=== PATIENT | female | born 1985 | race Caucasian/White ===

== ENCOUNTER 2017-01-05 15:58 | Emergency (ER) | payer OTHER ==
[2017-01-05 16:08] VITALS: BP 100/67
--- NOTE | 2017-01-05 16:12 | ED Physician Documentation ---
Upper Respiratory Symptoms - HISTORIAN Historian: patient - HPI Stated Complaint: CC Chief Complaint: Upper Respiratory Symptoms Onset: days ago (10 days) Duration: constant Context: denies: recent foreign travel Severity: mild Associated Symptoms: earache, runny nose, sinus pain (mild), sore throat. denies: fever, chills, sweating, hay fever, shortness of breath Further Comments: no - ROS CONST/EYES: denies: weakness - PAST HX Lung Disease: denies: asthma PE Risk Factors: none Surgeries/Procedures: other (lazix) Allergies/Adverse Reactions: Allergies Allergy/AdvReac Type Severity Reaction Status Date / Time No Known Allergies Allergy Verified 01/05/17 16:08 Home Medications: Ambulatory Orders Medication Instructions Recorded Amoxicillin [Amoxil] 500 mg PO TID #30 capsule 01/05/17 - SOCIAL HX Smoking History: non-smoker Alcohol Use: rarely Drug Use: none - FAMILY HX Family History: no significant history - VITAL SIGNS Vital Signs: Vital Signs Temp Pulse Resp BP Pulse Ox 98.1 F 74 20 100/67 100 01/05/17 16:06 01/05/17 16:06 01/05/17 16:06 01/05/17 16:06 01/05/17 16:06 - REVIEWED ASSESSMENTS Nursing Assessment Reviewed: Yes Vitals Reviewed: Yes Upper Respiratory Symptoms - EXAM General Appearance: alert EENT: eyes nml inspection, rhinorrhea, purulent nasal drainage, pharyngeal erythema (mild), other (TM clear, nare white/yellow discharge, no blood, mild sinus tenderness) Neck: normal inspection, thyroid normal, supple Respiratory: no resp. distress, breath sounds nml, speaks full sentences. No: respiratory distress, respiratory failure CVS: reg rate & rhythm, heart sounds normal, equal pulses Skin: color nml, no rash Neuro/Psych: mood/affect nml Discharge Clincal Impression: Upper respiratory infection Additional Instructions: Take Amoxil as directed, three time a day. Drink a lot of fluids. Take some Mucinex 600mg twice a day to help with congestion. Try some saline nasal spray to help loosen congestion. If not improving to follow-up with your primary care provider or return to the ED. Home Medications: Ambulatory Orders Amoxicillin [Amoxil] 500 mg PO TID #30 capsule 01/05/17 Condition: Fair Disposition: 01 HOME, SELF-CARE Decision to Admit: NO Date of Decison to Admit: 01/05/17 Decision Time: 16:17
== END 2017-01-05 16:49 | disposition home or self-care (01) ==
LOC: ED 15:58
DX: J06.9 Acute upper respiratory infection, unspecified (principal)
CPT/HCPCS: 99283

== ENCOUNTER 2017-01-11 16:32 | Emergency (ER) | payer OTHER ==
[2017-01-11 16:50] VITALS: BP 109/70
--- NOTE | 2017-01-11 17:19 | ED Physician Documentation ---
General Adult - HISTORIAN Historian: patient - HPI Stated Complaint: cold symptoms Chief Complaint: General Adult Additional Information: resp infection cough sob past 10 days on amox w/o help Onset: days ago (10) Timing: still present (no help w/amox) Severity: moderate - ROS CONST: weakness, chills, other (cough fever) EYES/ENT: denies: problems with vision CVS/RESP: shortness of breath, cough GI/: none MS/SKIN/LYMPH: none NEURO/PSYCH: denies: headache, difficulty with speech - PAST HX Past History: none Surgeries/Procedures: other (lasik) Immunizations: influenza, pneumovax Allergies/Adverse Reactions: Allergies Allergy/AdvReac Type Severity Reaction Status Date / Time No Known Allergies Allergy Verified 01/11/17 16:43 Home Medications: Ambulatory Orders Medication Instructions Recorded Amoxicillin [Amoxil] 500 mg PO TID #30 capsule 01/05/17 - SOCIAL HX Smoking History: non-smoker Alcohol Use: rarely Drug Use: none - FAMILY HX Family History: No - VITAL SIGNS Vital Signs: Vital Signs Temp Pulse Resp BP Pulse Ox 99.1 F 70 18 109/70 99 01/11/17 16:44 01/11/17 16:44 01/11/17 16:44 01/11/17 16:44 01/11/17 16:44 - REVIEWED ASSESSMENTS Nursing Assessment Reviewed: Yes Vitals Reviewed: Yes General Adult Physical Exam - PHYSICAL EXAM GENERAL APPEARANCE: moderate distress EENT: eye inspection normal NECK: lymphadenopathy RESPIRATORY: no resp distress, wheezes CVS: reg rate & rhythm, heart sounds normal ABDOMEN: soft, non-tender BACK: normal inspection SKIN: warm/dry, normal color. No: cyanosis, diaphoresis, jaundice, mottled EXTREMITIES: non-tender, normal range of motion NEURO: oriented X3 Discharge Clincal Impression: Viral respiratory infection Home Medications: Ambulatory Orders Amoxicillin [Amoxil] 500 mg PO TID #30 capsule 01/05/17 Condition: Fair Disposition: 01 HOME, SELF-CARE Decision to Admit: NO Decision Time: 17:29
== END 2017-01-11 17:19 | disposition home or self-care (01) ==
LOC: ED 16:32
DX: J06.9 Acute upper respiratory infection, unspecified (principal)
CPT/HCPCS: 99283